=== PATIENT | male | born 1970 | race Caucasian/White ===

== ENCOUNTER 2016-09-17 08:59 | Emergency (ER) | payer BC ==
[2016-09-17] MEDS ORDERED: Aspirin Low Dose CHEW TAB* 81 MG PO ONE (09:15)
--- NOTE | 2016-09-17 09:15 | UC ---
Respiratory Complaint HPI - HPI Summary HPI Summary: 3 days of SOB and chest pain has used MDI 6 times this morning without relief of sx, no fevers or chills - History of Current Complaint Chief Complaint: UCRespiratory Stated Complaint: SOB Time Seen by Provider: 09/17/16 09:01 Hx Obtained From: Patient Onset/Duration: Sudden Onset, Lasting Days - 3, Still Present Timing: Constant Severity Initially: Moderate Severity Currently: Moderate Pain Intensity: 5 Pain Scale Used: 0-10 Numeric Aggravating Factors: Deep Breaths Alleviating Factors: Nothing Associated Signs And Symptoms: Positive: Dyspnea, Wheezing - Allergies/Home Medications Allergies/Adverse Reactions: Allergies Allergy/AdvReac Type Severity Reaction Status Date / Time Bacitracin [From Neosporin] Allergy Severe Hives Verified 09/17/16 09:14 Neomycin [From Neosporin] Allergy Severe Hives Verified 09/17/16 09:14 Polymyxin B [From Neosporin] Allergy Severe Hives Verified 09/17/16 09:14 Home Medications: Home Medications Albuterol Sulfate [Proair Respiclick] 09/17/16 [History] Budesonide/Formote 160/4.5(NF) [Symbicort 160/4.5 (NF)] 09/17/16 [History] Cholesterol Med 1 tab PO DAILY 09/17/16 [History] Water Pill 1 tab PO DAILY 09/17/16 [History] PMH/Surg Hx/FS Hx/Imm Hx Previously Healthy: No Endocrine History: Dyslipidemia Cardiovascular History: Hypertension - Surgical History Surgical History: None - Family History Known Family History: Positive: Hypertension, Diabetes - Social History Occupation: Employed Full-time Lives: With Family Alcohol Use: Rare Substance Use Type: None Smoking Status (MU): Never Smoked Tobacco Review of Systems Constitutional: Negative Skin: Negative Eyes: Negative ENT: Negative Respiratory: Shortness Of Breath Cardiovascular: Chest Pain Gastrointestinal: Negative Genitourinary: Negative Motor: Negative Neurovascular: Negative Musculoskeletal: Negative Neurological: Negative Psychological: Negative All Other Systems Reviewed And Are Negative: Yes Physical Exam Triage Information Reviewed: Yes Appearance: Well-Appearing, No Pain Distress, Well-Nourished Vital Signs Reviewed: Yes Eye Exam: Normal Eyes: Positive: Conjunctiva Clear ENT Exam: Normal ENT: Positive: Normal ENT inspection, Hearing grossly normal. Negative: Nasal congestion, Nasal drainage, Trismus, Muffled/hoarse voice Dental Exam: Normal Neck exam: Normal Neck: Positive: Supple, Nontender, No Lymphadenopathy Respiratory Exam: Normal Respiratory: Positive: Chest non-tender, No accessory muscle use, Respiratory distress, Wheezing Cardiovascular Exam: Normal Cardiovascular: Positive: No Murmur, Pulses Normal, Brisk Capillary Refill, Tachycardia Musculoskeletal Exam: Normal Musculoskeletal: Positive: Strength Intact, ROM Intact, No Edema Neurological Exam: Normal Neurological: Positive: Alert, Muscle Tone Normal Psychological Exam: Normal Skin Exam: Normal UC Diagnostic Evaluation - EKG Cardiac Rate: Tachycardia Cardiac Rhythm: Sinus: Normal Ectopy: None ST Segment: Normal Respiratory Course/Dx - Course Course Of Treatment: AMA to [facility] [place], 324mg of Asprin at urgent care - Differential Dx/Diagnosis Differential Diagnosis/HQI/PQRI: Asthma, CHF, Exacerbation Of COPD, Lower Resp Infection, Other - cardiac chest pain Provider Diagnoses: Chest pain, SOB - Physician Notification/Consults Discussed Patient Care With: Irene RIOS Time Discussed With Above Provider: 09:30 Instructed by Provider To: Transfer Discharge - Discharge Plan Condition: Guarded Disposition: AGAINST MEDICAL ADVICE Referrals: Femi Sánchez MD [Primary Care Provider] -
[2016-09-17 09:54] VITALS: BP 143/74
== END 2016-09-17 09:27 | disposition left against medical advice (07) ==
LOC: UCEAST 08:59
DX: R07.9 Chest pain, unspecified (principal); R06.02 Shortness of breath; E78.5 Hyperlipidemia, unspecified; I10 Essential (primary) hypertension
CPT/HCPCS: 93005; 99212; A9270-GY; G0463

== ENCOUNTER → 2016-09-17 09:43 | Emergency (ER) | payer BC ==
[~2016-09-17 09:43] MED LIST: Albuterol/Ipratropium NEB.SOL* Albuterol 2.5 MG/Ipratropium 0.5 MG 3 ML INH ONE; predniSONE TAB* 20 MG PO ONE
[2016-09-17 11:25] VITALS: BP 128/99
--- NOTE | 2016-09-24 23:21 | ED ---
Marlyn Vargas Auryana, scribed for Bashir Jay MD on 09/17/16 at 1055 . Respiratory - HPI Summary HPI Summary: 46 year old male presents with chest tightness starting 2 days ago. Patient reports that he was at work Sunday when the episode started - believes related to the air conditioner. Patient also has SOB, wheezing, and cough. He states that the chest tightness is now mostly associated with coughing. He denies any lightheadedness, dizziness, fever, chills, diaphoresis, rhinorrhea, or any pain radiating into the arm or jaw. Chest tightness mildly alleviated by an inhaler. PMHx is significant for asthma, and HTN. He denies any tobacco use. - History of Current Complaint Chief Complaint: EDRespiratoryDistress Stated Complaint: DIFF BREATHING/CHEST TIGHTNESS Time Seen by Provider: 09/17/16 10:48 Hx Obtained From: Patient Onset/Duration: Gradual Onset, Lasting Days - 2, Still Present Timing: Constant Initial Severity: Mild Current Severity: Mild Pain Intensity: 1 - chest tightness Character: Wheezing, Cough (Nonproductive), Dyspnea at Rest Sputum Amount: None Aggravating Factor(s): Other - possible air conditioning at work Alleviating Factor(s): Neb. Bronchodilators (Frequency Of Use) - (1) tx while here Associated Signs and Symptoms: SOB, Wheezing, Chest Pain with Cough - tightness Related History: Similar Episode/Dx as - see HPI - Allergy/Home Medications Allergies/Adverse Reactions: Allergies Allergy/AdvReac Type Severity Reaction Status Date / Time Bacitracin [From Neosporin] Allergy Severe Hives Verified 09/17/16 09:14 Neomycin [From Neosporin] Allergy Severe Hives Verified 09/17/16 09:14 Polymyxin B [From Neosporin] Allergy Severe Hives Verified 09/17/16 09:14 PMH/Surg Hx/FS Hx/Imm Hx Endocrine/Hematology History: Denies: Hx Diabetes Cardiovascular History: Reports: Hx Hypertension Respiratory History: Reports: Hx Asthma Denies: Hx Chronic Obstructive Pulmonary Disease (COPD) Infectious Disease History: No Infectious Disease History: Denies: Traveled Outside the [place] in Last 30 Days - Family History Known Family History: Negative: Seizure Disorder - Social History Occupation: Employed Full-time Lives: With Family Alcohol Use: Occasionally Substance Use Type: Reports: None Smoking Status (MU): Never Smoked Tobacco Review of Systems Constitutional: Negative Negative: Fever, Chills Eyes: Negative Negative: Erythema ENT: Negative Negative: Sore Throat Positive: Chest Pain - chest tightness Positive: Shortness Of Breath, Cough, Other - wheezing Gastrointestinal: Negative Negative: Abdominal Pain, Vomiting, Nausea Genitourinary: Negative Negative: dysuria, hematuria Musculoskeletal: Negative Negative: Myalgia, Edema Skin: Negative Negative: Rash Neurological: Negative, Other - no dizziness Psychological: Normal All Other Systems Reviewed And Are Negative: Yes Physical Exam - Summary Physical Exam Summary: Constitutional: Well-developed, Well-nourished, Alert. (-) Distressed Skin: Warm, Dry HENT: Normocephalic; Atraumatic Eyes: Conjunctiva normal Neck: Musculoskeletal ROM normal neck. (-) JVD, (-) Stridor, (-) Tracheal deviation Cardio: Rhythm regular, rate normal, Heart sounds normal; Intact distal pulses; The pedal pulses are 2+ and symmetric. Radial pulses are 2+ and symmetric. (-) Murmur Pulmonary/Chest wall: Effort normal. (-) Respiratory distress, (-) Wheezes, (-) Rales. Diminished breath sounds. Abd: Soft, (-) Tenderness, (-) Distension, (-) Guarding, (-) Rebound Musculoskeletal: (-) Edema Lymph: (-) Cervical adenopathy Neuro: Alert, Oriented x3 Psych: Mood and affect Normal Triage Information Reviewed: Yes Vital Signs On Initial Exam: Initial Vitals Temp Pulse Resp BP Pulse Ox 98.8 F 106 24 109/96 96 09/17/16 09:45 09/17/16 09:45 09/17/16 09:45 09/17/16 09:45 09/17/16 09:45 Vital Signs Reviewed: Yes Diagnostics - Vital Signs Vital Signs Temp Pulse Resp BP Pulse Ox 09/17/16 10:13 74 14 96 09/17/16 09:45 98.8 F 106 24 109/96 96 - Laboratory Lab Statement: Any lab studies that have been ordered have been reviewed, and results considered in the medical decision making process. Disposition - Course Course Of Treatment: 46 year old male presents with chest tightness starting 2 days ago. Patient reports that he was at work Sunday when the episode started - believes related to the air conditioner. Patient also has SOB, wheezing, and cough. He states that the chest tightness is now mostly associated with coughing. He denies any lightheadedness, dizziness, fever, chills, diaphoresis, rhinorrhea, or any pain radiating into the arm or jaw. Chest tightness mildly alleviated by an inhaler. PMHx is significant for asthma, and HTN. He denies any tobacco use. Patient recieved 1 nebulizer treatment with improvement of symptoms, refused second nebulizer treatment. Will d/c with diagnosis of asthma exacerbation - Differential Dx - Cardiopulmonary Differential Diagnoses - Cardiopulmonary: Other - [place] asthma exacerbation - Diagnoses Provider Diagnoses: Asthma exacerbation Discharge - Discharge Plan Condition: Stable Disposition: HOME Prescriptions: Albuterol HFA INHALER* [Ventolin HFA Inhaler*] 1 puff INH Q6H PRN #1 mdi PRN Reason: Cough predniSONE TAB* [Deltasone TAB*] 50 mg PO DAILY #5 tab Patient Education Materials: Asthma (ED) Referrals: Femi Sánchez MD [Primary Care Provider] - 3 Days Additional Instructions: PLEASE FOLLOW UP WITH YOUR PRIMARY CARE PHYSICIAN OR RETURN TO THE EMERGENCY DEPARTMENT FOR CHANGING OR WORSENING SYMPTOMS The documentation as recorded by the Marlyn carballo Auryana accurately reflects the service I personally performed and the decisions made by me, Bashir Jay MD.
== END | disposition home or self-care (01) ==
LOC: ED 09:43
DX: J45.901 Unspecified asthma with (acute) exacerbation (principal); I10 Essential (primary) hypertension
CPT/HCPCS: 94640; 99282; A9270-GY; J7512

== ENCOUNTER 2022-09-13 09:21 | Observation (INO) ==
[~2022-09-13 09:21] MED LIST changes: -Albuterol/Ipratropium NEB.SOL* Albuterol 2.5 MG/Ipratropium 0.5 MG 3 ML INH ONE; +Buffered Lidocaine 1% SYRIN 1 ml INTRADERM ONE; +Famotidine IV 10 MG/ML 2 ml VIAL (20 mg) IV ONE; -predniSONE TAB* 20 MG PO ONE
[2022-09-13] MEDS ORDERED: Famotidine IV 10 MG/ML 2 ml VIAL (20 mg) ONE (09:55)
[2022-09-13 09:59] LABS: Rapid COVID-19 Molecular Undetected (Undetected)
[2022-09-13] MEDS ORDERED: cefTRIAXone 2 gm/50 mL D5W 2 GM/50 ML BAG IV ONE ×2 (10:00→10:10)
[2022-09-13] MEDS ORDERED: Gentamicin ADULT 160 MG in NS 0.9% 100 ml BAG 100 ML IVPB ONE (10:00)
[2022-09-13] MEDS ORDERED: fentaNYL 100 mcg/2 ml 50 MCG/ML VIAL ONE (11:31)
[2022-09-13] MEDS ORDERED: Midazolam 5 mg/5 ml VIAL 1 mg/ml 5 ml VIAL (5 mg) ONE (11:31)
[2022-09-13] MEDS ORDERED: fentaNYL 100 mcg/2 ml 50 MCG/ML VIAL IV PRN (11:36)
[2022-09-13] MEDS ORDERED: oxyCODONE/Acetamin 5/325 mg TAB PO PRN (11:36)
[2022-09-13] MEDS ORDERED: Naloxone 0.4 mg VIAL 0.4 mg/ml 1 ml VIAL IV PRN (11:36)
[2022-09-13] MEDS ORDERED: HYDROcodone/ACETAMIN 5/325 mg TAB PO PRN (11:36)
[2022-09-13] MEDS ORDERED: Prochlorperazine 5 mg/ml 2 ml VIAL (10 mg) IV PRN (11:36)
[2022-09-13] MEDS ORDERED: Lidocaine 2% PF 5 ML VIAL ONE (11:58)
[2022-09-13] MEDS ORDERED: Furosemide 20 mg/2 ml IV VIAL ONE (12:32)
[2022-09-13] MEDS ORDERED: Ondansetron 4 mg VIAL 2 MG/ML 2 ml VIAL ONE (13:01)
[2022-09-13] MEDS ORDERED: Phenylephrine 40 mcg/mL 10mL (400mcg) SYRINGE ONE (13:12)
[2022-09-13] MEDS: Lactated Ringers 1000 ml BAG 1,000 ML IV SCH (17:37)
[2022-09-13] MEDS ORDERED: Albuterol HFA INHALER 8 gm MDI INH PRN (21:47)
[2022-09-14] MEDS: Lactated Ringers 1000 ml BAG 1,000 ML IV SCH (00:34)
[2022-09-14 06:05] VITALS: BP 126/82
[2022-09-14 06:10] LABS: Calcium 8.3 mg/dL (8.6-10.3); Creatinine, Serum 0.83 mg/dL (0.67-1.17); Potassium 4.1 mmol/L (3.5-5.0); eGFR CKD-EPI 105.3 (>60)
[2022-09-14] MEDS ORDERED: Vitamin THERAPEUTIC TAB PO SCH (09:00)
[2022-09-14] MEDS ORDERED: cefTRIAXone 2 GM VIAL ONE (10:30)
[2022-09-14] MEDS ORDERED: cefTRIAXone 2 gm/50 mL D5W 2 GM/50 ML BAG IV ONE (10:30)
== END 2022-09-14 09:20 | disposition home or self-care (01) ==
LOC: OR 09:21 → SSU 09:21
PROVIDERS: ADMIT Urology; ATTEND Urology